=== PATIENT | female | born 1985 | race Two or more races ===

== ENCOUNTER → 2024-08-13 | Outpatient (CLI) | payer MEDICAID, SELFPAY ==
--- NOTE | 2024-08-13 13:00 | XR_ITS ---
Examination: Pelvic ultrasound, transabdominal, complete Technique: Transabdominal ultrasound of the pelvis performed using grayscale imaging Date and time of exam: August 13, 2024 1425 hours INDICATIONS: Status post surgery for leiomyoma September 2023 FINDINGS: Uterus 9.8 x 5.1 x 5.2 cm Multiple uterine masses, the largest in the posterior body the uterus 4.6 x 4.5 x 4.3 cm Endometrial stripe is thickened in the cervix 17 mm Endometrial stripe in the fundus 9 mm Right ovary 2.8 x 1.6 x 2.3 cm arterial flow Left ovary 5.5 x 3.6 x 5.2 cm arterial flow, 4.6 x 4.4 cm, 1.8 x 1.9 cm cirrhosis IMPRESSION: Multiple uterine masses, the largest in the posterior body of uterus 4.6 x 4.5 x 4.3 cm Endometrium in the cervix is thickened 17 mm Recommend transvaginal pelvic sonography follow-up
== END | disposition home or self-care (01) ==
LOC: CDIM 12:32
PROVIDERS: PCP Physician Assistant Medical; Referring Provider Obstetrics & Gynecology; Visit Provider Obstetrics & Gynecology
DX: R19.09 Other intra-abdominal and pelvic swelling, mass and lump (principal); R93.89 Abnormal findings on diagnostic imaging of other specified body structures
CPT/HCPCS: 76856